=== PATIENT | female | born 1945 | race African-American/Black ===

== ENCOUNTER 2016-12-02 05:44 | Emergency (ER) | payer MEDICARE, BC ==
[~2016-12-02] VITALS: Ht 162.6 cm; Wt 70.9 kg
[2016-12-02] MEDS ORDERED: ONDANSETRON HCL 4MG/2ML VIAL IV STA (06:20)
[2016-12-02] MEDS ORDERED: SODIUM CHLORIDE 0.9% 1,000 ML IV ONE (06:20)
[2016-12-02] MEDS ORDERED: MORPHINE SULFATE 4 MG/ML CPJ (NOT FOR IM USE) IV STA (06:20)
[2016-12-02 06:31] LABS: EOSINOPHILS % 2.4 % (0.0-5.0); HEMATOCRIT. 36.3 % (36.0-48.0); HEMOGLOBIN. 11.8 g/dL (12.0-16.0); LYMPHOCYTES % 32.5 % (20.0-50.0); MEAN CORPUSCULAR HEMOGLOBIN 26.9 pg (28.0-32.0); MEAN CORPUSCULAR VOLUME 82.5 fL (81.0-99.0); MEAN PLATELET VOLUME 10.1 fl (7.4-10.4); MONOCYTES % 9.1 % (2.0-8.0); PLATELET 164 x1000/uL (130-400); RED CELL DISTRIBUTION WIDTH 14.2 % (11.6-14.6)
[2016-12-02 06:40] LABS: PROTHROMBIN TIME 10.7 sec
[2016-12-02 06:45] LABS: CARBON DIOXIDE 29 mEq/L (21-32); CHLORIDE 108 mEq/L (98-107)
[2016-12-02 06:48] LABS: TROPONIN I < 0.02 ng/mL (0.00-0.04)
[2016-12-02 07:10] LABS: CLARITY URINE CLEAR (CLEAR); COLOR URINE YELLOW (YELLOW); GLUCOSE URINE NEGATIVE (NEGATIVE); KETONES URINE NEGATIVE (NEGATIVE); LEUKOCYTE ESTERASE URINE NEGATIVE (NEGATIVE); NITRITE URINE NEGATIVE (NEGATIVE); OCCULT BLOOD URINE NEGATIVE (NEGATIVE); PH URINE 6.5 (4.5-8.0); PROTEIN URINE NEGATIVE (NEGATIVE); UROBILINOGEN URINE 0.2 E.U./dL (0.2-1.0)
[2016-12-02 11:25] VITALS: BP 152/77
== END 2016-12-02 16:59 | disposition home or self-care (01) ==
LOC: ER 05:44
DX: R51 Headache (principal); I10 Essential (primary) hypertension; E78.00 Pure hypercholesterolemia, unspecified; Z90.710 Acquired absence of both cervix and uterus; Z90.49 Acquired absence of other specified parts of digestive tract
CPT/HCPCS: 36415; 70450; 80053; 81003; 83880; 84484; 85025; 85610; 85651; 93005; 96361; 96374; 96375; 99285; J2270; J2405; J7030

== ENCOUNTER 2023-04-17 13:31 | Emergency (ER) | payer BC, MEDICAID ==
[~2023-04-17] VITALS: Ht 165.1 cm; Wt 64.0 kg
[2023-04-17 13:36] VITALS: O2SAT 99
[2023-04-17] MEDS ORDERED: ACETAMINOPHEN 325MG TABLET PO ONE (13:45)
[2023-04-17 15:59] VITALS: BP 121/67; PULSE 65; RESP 16; TEMP 98.6
== END 2023-04-17 16:00 | disposition home or self-care (01) ==
LOC: ER 13:31
DX: S00.83XA Contusion of other part of head, initial encounter (principal); S60.212A Contusion of left wrist, initial encounter; E78.00 Pure hypercholesterolemia, unspecified; I10 Essential (primary) hypertension; G89.11 Acute pain due to trauma; Z90.710 Acquired absence of both cervix and uterus; Z90.49 Acquired absence of other specified parts of digestive tract; W18.39XA Other fall on same level, initial encounter; Y93.89 Activity, other specified; Y92.89 Other specified places as the place of occurrence of the external cause; Y99.8 Other external cause status
CPT/HCPCS: 70486; 73110; 73120; 99284